=== PATIENT | female | born 1940 | race Caucasian/White ===

== ENCOUNTER 2018-04-07 22:15 | Emergency (ER) | payer MEDICARE, BC ==
--- NOTE | 2018-04-07 23:00 | EDM.PDOC ---
ED HPI GENERAL MEDICAL PROBLEM - General Chief Complaint: Cardiovascular Problem Stated Complaint: RAPID HEART BEAT Time Seen by Provider: 04/07/18 22:23 Source of Information: Reports: Patient, Family (Daughter), RN Notes Reviewed History Limitations: Reports: No Limitations - History of Present Illness INITIAL COMMENTS - FREE TEXT/NARRATIVE: The patient states that she has been feeling rapid palpitations on and off for 30 years, but that they usually only last for a few minutes. Tonight she developed the sensation around 19:00, and they have persisted. She is unsure if she may have been feeling them earlier today. She denies associated chest pain, dyspnea, nausea, or diaphoresis. She does feel anxious. She has had an occasional dry cough. No recent fever, abdominal pain, vomiting, constipation, diarrhea, or urinary symptoms. The patient initially stated that she has had prior cardiac evaluations that included ECGs, an echocardiogram, and stress tests, all negative. She has never undergone a coronary angiogram. The patient then noted, however, that she is on digoxin and Eliquis, for, it turns out, chronic atrial fibrillation. The patient is sometimes able to sense that she is in atrial fibrillation, other times not. At the time, for example, atrial fibrillation was present on the electronic device monitor, however, the patient did not feel any palpitations. She is also on furosemide and hydrochlorothiazide, likely for congestive heart failure , although, as above, she has not had any recent dyspnea. The patient's PCP is Dr. Keys. She does not have a Broadcast Designer. - Related Data Allergies Allergy/AdvReac Type Severity Reaction Status Date / Time No Known Allergies Allergy Verified 01/27/17 10:15 Home Meds: Home Meds Apixaban [Eliquis] 5 mg PO DAILY 04/07/18 [History] Digoxin 125 mcg PO DAILY 04/07/18 [History] Folic Acid 1 tab PO DAILY 04/07/18 [History] Furosemide 20 mg PO DAILY 04/07/18 [History] Losartan [Cozaar] 50 mg PO DAILY 04/07/18 [History] Methotrexate Sodium [Methotrexate] 15 mg PO DAILY 04/07/18 [History] Nebivolol HCl [Bystolic] 10 mg PO DAILY 04/07/18 [History] hydroCHLOROthiazide [Hydrochlorothiazide] 50 mg PO 04/07/18 [History] Past Medical History HEENT History: Reports: Impaired Vision Cardiovascular History: Reports: Afib (chronic), Heart Failure, Hypertension Genitourinary History: Reports: Urinary Incontinence (stress incontinence) Musculoskeletal History: Reports: RA - Infectious Disease History Infectious Disease History: Reports: Chicken Pox, Measles, Shingles - Past Surgical History HEENT Surgical History: Reports: LASIK, Oral Surgery (wisdom teeth extracted) Musculoskeletal Surgical History: Reports: Knee Replacement, ORIF (right wrist) Social & Family History - Family History Family Medical History: Noncontributory - Tobacco Use Smoking Status *Q: Never Smoker - Alcohol Use Alcohol Use History: Yes Alcohol Use Frequency: Socially - Recreational Drug Use Recreational Drug Use: No - Living Situation & Occupation Living situation: Reports: , Alone Occupation: Retired ED ROS GENERAL - Review of Systems Review Of Systems: ROS reveals no pertinent complaints other than HPI. ED EXAM, GENERAL - Physical Exam Exam: See Below Exam Limited By: No Limitations General Appearance: Alert, WD/WN, No Apparent Distress Eye Exam: Bilateral Eye: EOMI, Normal Inspection Ears: Normal External Exam, Hearing Loss Nose: Normal Inspection Throat/Mouth: Normal Inspection, Normal Lips, Normal Voice, No Airway Compromise Head: Atraumatic, Normocephalic Neck: Normal Inspection, Full Range of Motion Respiratory/Chest: No Respiratory Distress, Lungs Clear, Normal Breath Sounds, No Accessory Muscle Use Cardiovascular: Normal Peripheral Pulses, No Edema, No Gallop, No JVD, No Murmur , No Rub, Irregularly Irregular (regular rate) Peripheral Pulses: 4+: Radial (L), Radial (R) GI/Abdominal: Normal Bowel Sounds, Soft, Non-Tender, No Organomegaly, No Distention, No Abnormal Bruit, No Mass (Female) Exam: Deferred Rectal (Female) Exam: Deferred Back Exam: Normal Inspection, Full Range of Motion, NT Extremities: Normal Inspection, Normal Range of Motion, No Pedal Edema, Normal Capillary Refill Neurological: Alert, Oriented, Normal Cognition, No Motor/Sensory Deficits Psychiatric: Normal Affect Skin Exam: Warm, Dry, Intact, Normal Color, No Rash EKG INTERPRETATION EKG Date: 04/07/18 Time: 10:26 Rhythm: A-Fib Rate (Beats/Min): 71 Cardwell: LAD-Left Cardwell Deviation (likely 2 LAFB) P-Wave: Absent QRS: Other (+LVH. Late transition) ST-T: Normal QT: Normal Comparison: NA - No Prior EKG Course - Vital Signs Last Recorded V/S: Last Vital Signs Temp 36.2 C 04/07/18 22:20 Pulse 72 04/07/18 22:20 Resp 16 04/07/18 22:20 BP 149/95 H 04/07/18 22:20 Pulse Ox 98 04/07/18 22:20 - Re-Assessments/Exams Free Text/Narrative Re-Assessment/Exam: 04/07/18 22:54 The patient's ECG demonstrates atrial fibrillation, rate controlled at 71 bpm. She is already on Eliquis. As per the history of present illness, the patient has a 30 year history of palpitations - sometimes she is aware of her atrial fibrillation, sometimes not, even though it appears that she is chronically in atrial fibrillation. From an atrial fibrillation standpoint, no further evaluation or treatment is required. The patient does not have any other symptoms, such as chest pain or dyspnea, therefore I don't see any need to order other tests, either. The patient was concerned about her blood pressure at home, but it is quite reasonable at 149/95 here in the ED. I believe we can safely discharge the patient home, and have her follow-up with her PCP, Dr. Sarah Lu. Both the patient and her daughter are delighted with that decision. Departure - Departure Time of Disposition: 22:56 Disposition: Home, Self-Care 01 Condition: Good Clinical Impression: Chronic atrial fibrillation, Palpitations, Elevated blood pressure reading Instructions: Palpitations, [id number] Referrals: Simon Crump MD [Primary Care Provider] - Forms: ED Department Discharge Additional Instructions: You were seen in the emergency room for rapid palpitations and elevated blood pressure tonight. In the ER, an ECG showed that you are in atrial fibrillation, but your heart rate is controlled. As discussed, with atrial fibrillation, the two concerns are your heart rate, and anticoagulation. In your case, both of these are adequately taken care of, therefore no further workup was indicated. We recommend that you continue to take your medications as prescribed. Follow-up with your PCP, Dr. Keys, as needed. If any other problems, please do not hesitate to return to the ER.
== END 2018-04-07 23:06 | disposition home or self-care (01) ==
LOC: JD.ED 22:15
DX: I48.2 Chronic atrial fibrillation (principal); I11.9 Hypertensive heart disease without heart failure; I50.9 Heart failure, unspecified; Z79.01 Long term (current) use of anticoagulants; Z79.899 Other long term (current) drug therapy
CPT/HCPCS: 93005; 99284

== ENCOUNTER 2019-06-06 07:51 | Day surgery (SDC) | payer MEDICARE, BC ==
--- NOTE | 2019-06-06 08:16 | PCM.PREANE ---
Preanesthetic Assessment - Anesthesia/Transfusion/Family Hx Anesthesia History: Prior Anesthesia Without Reaction Family History of Anesthesia Reaction: No Transfusion History: No Prior Transfusion(s) Intubation History: Unknown - Review of Systems General: No Symptoms Pulmonary: No Symptoms Cardiovascular: No Symptoms (History of A-fib: on eliquis, history of HTN) Gastrointestinal: No Symptoms Neurological: No Symptoms Other: Reports: None - Physical Assessment NPO Status Date: 06/05/19 NPO Status Time: 17:30 Vital Signs: HR: 59 BP: 136/77 Resp: 16 Sat: 97% Temp: 97.5 Height: 1.65 m Weight: 71.668 kg ASA Class: 2 Mental Status: Alert & Oriented x3 Airway Class: Mallampati = 2 Dentition: Reports: Normal Dentition, Caries Thyro-Mental Finger Breadths: 3 Mouth Opening Finger Breadths: 3 ROM/Head Extension: Full Lungs: Clear to Auscultation, Normal Respiratory Effort Cardiovascular: Regular Rate, Regular Rhythm, No Murmurs - Allergies Allergies/Adverse Reactions: Allergies Allergy/AdvReac Type Severity Reaction Status Date / Time No Known Allergies Allergy Verified 06/05/19 11:07 - Anesthesia Plan Pre-Op Medication Ordered: Beta Nicole Beta Nicole: Other (Bystolic) Med Last Dose Date: 06/06/19 Med Last Dose Time: 06:00 - Acknowledgements Anesthesia Type Planned: MAC Pt an Appropriate Candidate for the Planned Anesthesia: Yes Alternatives and Risks of Anesthesia Discussed w Pt/Guardian: Yes Pt/Guardian Understands and Agrees with Anesthesia Plan: Yes PreAnesthesia Questionnaire HEENT History: Reports: Impaired Vision Cardiovascular History: Reports: Afib (chronic), Heart Failure, Hypertension Genitourinary History: Reports: Urinary Incontinence (stress incontinence) Musculoskeletal History: Reports: RA - Infectious Disease History Infectious Disease History: Reports: Chicken Pox, Measles, Shingles - Past Surgical History HEENT Surgical History: Reports: LASIK, Oral Surgery (wisdom teeth extracted) Musculoskeletal Surgical History: Reports: Knee Replacement, ORIF (right wrist) - HOME MEDS Home Medications: Home Meds Apixaban [Eliquis] 5 mg PO BID 04/07/18 [History] Digoxin 125 mcg PO DAILY 04/07/18 [History] Folic Acid 1 mg PO DAILY 04/07/18 [History] Furosemide 20 mg PO DAILY 01/17/19 [History] Losartan [Cozaar] 75 mg PO DAILY 04/07/18 [History] Methotrexate Sodium [Methotrexate] 17.5 mg PO TH 04/07/18 [History] Nebivolol HCl [Bystolic] 10 mg PO DAILY 04/07/18 [History] Hydroxychloroquine [Plaquenil] 200 mg PO BID 06/05/19 [History] hydrOXYzine HCL [Hydroxyzine HCl] 25 mg PO DAILY 06/05/19 [History] - CURRENT (IN HOUSE) MEDS Current Meds: Current Medications Brimonidine Tartrate (Alphagan 0.2% Ophth Soln) 0 ml EYELF ASDIRECTED MELO Stop: 06/06/19 23:00 Cefuroxime Sodium (Zinacef) 0 mg EYELF ASDIRECTED MELO Stop: 06/06/19 18:00 Lidocaine HCl (Xylocaine-Mpf 1%) 1 ml INJECT ASDIRECTED MELO Stop: 06/06/19 18:00 Phenylephrine HCl (Luca-Synephrine 2.5% Ophth Soln) 0 ml EYELF ASDIRECTED MELO Stop: 06/06/19 23:00 Pilocarpine HCl (Pilocar 4% Ophth Soln) 0 ml EYELF ASDIRECTED MELO Stop: 06/06/19 23:00 Polymyxin/Trimethoprim Sulfate (Polytrim Ophth Soln) 0 ml EYELF ASDIRECTED MELO Stop: 06/06/19 23:00 Tetracaine HCl (Tetracaine 0.5% Steri-Unit Yodit) 0 ml EYEBOTH ASDIRECTED MELO Stop: 06/06/19 23:00 Tropicamide (Mydriacyl 1% Ophth Soln) 0 ml EYELF ASDIRECTED MELO Stop: 06/06/19 23:00
[2019-06-06] MEDS: Polymyxin B/Trimethoprim 10 ML Bottle EYELF SCH ×4 (08:31→10:35)
[2019-06-06] MEDS: Brimonidine 0.2% Ophth Soln 5 ML Bottle EYELF SCH ×4 (08:35→10:35)
[2019-06-06] MEDS: Phenylephrine 2.5% Ophth Soln 2 ML Bot EYELF SCH ×6 (08:40→10:15)
[2019-06-06] MEDS: Tropicamide 1% Ophth Soln 15 ML Bottle EYELF SCH ×4 (08:45→09:37)
[2019-06-06] MEDS: Lidocaine 1% PF 2 ML SDV INJECT SCH ×2 (08:57→10:23)
[2019-06-06] MEDS: Tetracaine HCl/PF 0.5% 4 ML Bottle EYEBOTH SCH ×3 (08:57→10:22)
[2019-06-06] MEDS: Pilocarpine 4% Ophth Soln 15 ML Bot EYELF SCH ×2 (08:58→10:35)
[2019-06-06] MEDS: Cefuroxime 10 MG/ML SYRINGE EYELF SCH ×2 (08:58→10:34)
--- NOTE | 2019-06-06 10:37 | PCM48HPAN ---
Post Anesthesia Note - EVALUATION WITHIN 48HRS OF ANESTHETIC Vital Signs in Normal Range: Yes Patient Participated in Evaluation: Yes Respiratory Function Stable: Yes Airway Patent: Yes Cardiovascular Function Stable: Yes Hydration Status Stable: Yes Pain Control Satisfactory: Yes Nausea and Vomiting Control Satisfactory: Yes Mental Status Recovered: Yes Vital Signs: Last Vital Signs Temp 36.4 C 06/06/19 07:50 Pulse 59 L 06/06/19 07:50 Resp 16 06/06/19 07:50 BP 136/77 06/06/19 07:50 Pulse Ox 97 06/06/19 07:50
== END 2019-06-06 10:50 | disposition home or self-care (01) ==
LOC: JD.SDS 07:51
PROVIDERS: ATTEND Ophthalmology
DX: H25.813 Combined forms of age-related cataract, bilateral (principal); I10 Essential (primary) hypertension; Z98.890 Other specified postprocedural states
CPT/HCPCS: 66984; J0697; J2001; V2632

== ENCOUNTER 2019-08-08 08:15 | Day surgery (SDC) | payer MEDICARE, BC ==
[~2019-08-08 08:15] MED LIST: Cefuroxime 10 MG/ML SYRINGE EYERT SCH; Lidocaine 1% PF 2 ML SDV INJECT SCH; Pilocarpine 4% Ophth Soln 15 ML Bot EYERT SCH
[2019-08-08] MEDS: Polymyxin B/Trimethoprim 10 ML Bottle EYERT SCH ×3 (08:19→10:37)
[2019-08-08] MEDS: Brimonidine 0.2% Ophth Soln 5 ML Bottle EYERT SCH ×3 (08:23→10:37)
[2019-08-08] MEDS: Phenylephrine 2.5% Ophth Soln 2 ML Bot EYERT SCH ×5 (08:26→10:07)
[2019-08-08] MEDS: Tropicamide 1% Ophth Soln 15 ML Bottle EYERT SCH ×4 (08:29→09:00)
[2019-08-08] MEDS: Tetracaine HCl/PF 0.5% 4 ML Bottle EYEBOTH SCH ×4 (09:05→10:35)
--- NOTE | 2019-08-08 09:21 | PCM.PREANE ---
Preanesthetic Assessment - Procedure Proposed Procedure: cataract extraction with IOL implant - Anesthesia/Transfusion/Family Hx Anesthesia History: Prior Anesthesia Without Reaction Transfusion History: No Prior Transfusion(s) Intubation History: Unknown - Review of Systems General: No Symptoms Pulmonary: No Symptoms Cardiovascular: Other (A-fib) Gastrointestinal: No Symptoms Neurological: No Symptoms Other: Reports: None - Physical Assessment NPO Status Date: 08/07/19 NPO Status Time: 20:00 Vital Signs: Last Vital Signs Temp 36.8 C 08/08/19 08:05 Pulse 62 08/08/19 08:05 Resp 16 08/08/19 08:05 BP 141/69 H 08/08/19 08:05 Pulse Ox 97 08/08/19 08:05 Height: 1.65 m Weight: 69.4 kg ASA Class: 2 Mental Status: Alert & Oriented x3 Airway Class: Mallampati = 1 Dentition: Reports: Normal Dentition Thyro-Mental Finger Breadths: 3 Mouth Opening Finger Breadths: 3 ROM/Head Extension: Full Lungs: Clear to Auscultation, Normal Respiratory Effort Cardiovascular: Regular Rate, Regular Rhythm - Allergies Allergies/Adverse Reactions: Allergies Allergy/AdvReac Type Severity Reaction Status Date / Time No Known Allergies Allergy Verified 08/07/19 15:09 - Blood Blood Available: No Product(s) Available: None - Anesthesia Plan Pre-Op Medication Ordered: Beta Nicole Beta Nicole: Other (Bystolic) Med Last Dose Date: 08/08/19 Med Last Dose Time: 06:30 - Acknowledgements Anesthesia Type Planned: MAC Pt an Appropriate Candidate for the Planned Anesthesia: Yes Alternatives and Risks of Anesthesia Discussed w Pt/Guardian: Yes Pt/Guardian Understands and Agrees with Anesthesia Plan: Yes PreAnesthesia Questionnaire HEENT History: Reports: Impaired Vision Cardiovascular History: Reports: Afib (chronic), Heart Failure, Hypertension Genitourinary History: Reports: Urinary Incontinence (stress incontinence) Musculoskeletal History: Reports: RA - Infectious Disease History Infectious Disease History: Reports: Chicken Pox, Measles, Shingles - Past Surgical History HEENT Surgical History: Reports: LASIK, Oral Surgery (wisdom teeth extracted) Musculoskeletal Surgical History: Reports: Knee Replacement, ORIF (right wrist) - SUBSTANCE USE Smoking Status *Q: Never Smoker Tobacco Use Within Last Twelve Months: No Second Hand Smoke Exposure: No Days Per Week of Alcohol Use: 1 Number of Drinks Per Day: 0 Total Drinks Per Week: 0 Recreational Drug Use History: No - HOME MEDS Home Medications: Home Meds Apixaban [Eliquis] 5 mg PO BID 04/07/18 [History] Digoxin 125 mcg PO DAILY 04/07/18 [History] Folic Acid 1 mg PO DAILY 04/07/18 [History] Furosemide 20 mg PO Q48H 04/07/18 [History] Losartan [Cozaar] 75 mg PO DAILY 04/07/18 [History] Nebivolol HCl [Bystolic] 10 mg PO DAILY 04/07/18 [History] metHOTREXate sodium [Methotrexate] 15 mg PO TH 04/07/18 [History] Hydroxychloroquine [Plaquenil] 200 mg PO BID 06/05/19 [History] - CURRENT (IN HOUSE) MEDS Current Meds: Current Medications Brimonidine Tartrate (Alphagan 0.2% Ophth Soln) 0 ml EYERT ASDIRECTED MELO Stop: 08/08/19 18:00 Last Admin: 08/08/19 08:52 Dose: 1 drop Cefuroxime Sodium (Zinacef) 0 mg EYERT ASDIRECTED MELO Stop: 08/08/19 18:00 Lidocaine HCl (Xylocaine-Mpf 1%) 0 ml INJECT ASDIRECTED MELO Stop: 08/08/19 18:00 Phenylephrine HCl (Luca-Synephrine 2.5% Ophth Soln) 0 ml EYERT ASDIRECTED MELO Stop: 08/08/19 18:00 Last Admin: 08/08/19 08:56 Dose: 1 drop Pilocarpine HCl (Pilocar 4% Ophth Soln) 0 ml EYERT ASDIRECTED MELO Stop: 08/08/19 18:00 Polymyxin/Trimethoprim Sulfate (Polytrim Ophth Soln) 0 ml EYERT ASDIRECTED MELO Stop: 08/08/19 18:00 Last Admin: 08/08/19 08:48 Dose: 1 drop Tetracaine HCl (Tetracaine 0.5% Steri-Unit Yodit) 0 ml EYEBOTH ASDIRECTED MELO Stop: 08/08/19 18:00 Last Admin: 08/08/19 09:10 Dose: 1 drop Tropicamide (Mydriacyl 1% Ophth Soln) 0 ml EYERT ASDIRECTED MELO Stop: 08/08/19 18:00 Last Admin: 08/08/19 09:00 Dose: 1 drop
--- NOTE | 2019-08-08 10:17 | PCM48HPAN ---
Post Anesthesia Note - EVALUATION WITHIN 48HRS OF ANESTHETIC Vital Signs in Normal Range: Yes Patient Participated in Evaluation: Yes Respiratory Function Stable: Yes Airway Patent: Yes Cardiovascular Function Stable: Yes Hydration Status Stable: Yes Pain Control Satisfactory: Yes Nausea and Vomiting Control Satisfactory: Yes Mental Status Recovered: Yes Vital Signs: Last Vital Signs Temp 36.8 C 08/08/19 08:05 Pulse 62 08/08/19 08:05 Resp 16 08/08/19 08:05 BP 141/69 H 08/08/19 08:05 Pulse Ox 97 08/08/19 08:05
== END 2019-08-08 10:46 ==
LOC: JD.SDS 08:15
PROVIDERS: ATTEND Ophthalmology
DX: H25.811 Combined forms of age-related cataract, right eye (principal); H35.363 Drusen (degenerative) of macula, bilateral; H35.3131 Nonexudative age-related macular degeneration, bilateral, early dry stage; H17.813 Minor opacity of cornea, bilateral; H16.103 Unspecified superficial keratitis, bilateral; H16.223 Keratoconjunctivitis sicca, not specified as Sjogren's, bilateral; I11.0 Hypertensive heart disease with heart failure; I50.9 Heart failure, unspecified; I48.20 Chronic atrial fibrillation, unspecified; Z79.01 Long term (current) use of anticoagulants; Z96.1 Presence of intraocular lens
CPT/HCPCS: 66984; J0697; J2001; C1780

== ENCOUNTER 2020-07-04 19:16 | Emergency (ER) | payer MEDICARE, BC ==
[2020-07-04] MEDS ORDERED: Sodium Chloride 0.9% 10 ML Syringe FLUSH PRN (19:42)
--- NOTE | 2020-07-04 19:52 | EDM.PDOC ---
ED HPI GENERAL MEDICAL PROBLEM - General Chief Complaint: Cardiovascular Problem Stated Complaint: LEFT ARM PAIN FEET SWELLING Time Seen by Provider: 07/04/20 19:41 Source of Information: Reports: Patient, RN Notes Reviewed History Limitations: Reports: No Limitations - History of Present Illness INITIAL COMMENTS - FREE TEXT/NARRATIVE: Patient is an 79-year-old female presents to the ER for her left arm pain, and feet swelling. Patient notes that her left arm pain started yesterday, but seems to have worsened today. She is also appreciated some swelling into her legs, notes that her weight is 3 to 5 pounds more here than it was at home. Patient is not having any chest pain, she has been having a lingering cough since , with accompanying lethargy. Patient's not had any recent medicine changes. She does take Lasix, on a weekly basis. She has a history of atrial fibrillation and is on a blood thinner for this. Also has a history of rheumatoid arthritis. Patient's care provider is Dr. Keys. She denies any fevers or chills, any productive cough, she states that she gets winded pretty easily, she has not had any nausea or vomiting or diarrhea. She has about 1+ edema on her bilateral lower extremities. Left Arm Pain Score (Numeric/FACES): 5 - Related Data Allergies Allergy/AdvReac Type Severity Reaction Status Date / Time No Known Allergies Allergy Verified 08/07/19 15:09 Home Meds: Home Meds Apixaban [Eliquis] 5 mg PO BID 04/07/18 [History] Digoxin 125 mcg PO DAILY 04/07/18 [History] Folic Acid 1 mg PO DAILY 04/07/18 [History] Furosemide 20 mg PO Q48H 04/07/18 [History] Losartan [Cozaar] 75 mg PO DAILY 04/07/18 [History] Nebivolol HCl [Bystolic] 10 mg PO DAILY 04/07/18 [History] metHOTREXate sodium [Methotrexate] 15 mg PO TH 04/07/18 [History] Hydroxychloroquine [Plaquenil] 200 mg PO BID 06/05/19 [History] Past Medical History HEENT History: Reports: Impaired Vision Cardiovascular History: Reports: Afib (chronic), Heart Failure, Hypertension Genitourinary History: Reports: Urinary Incontinence (stress incontinence) Musculoskeletal History: Reports: RA - Infectious Disease History Infectious Disease History: Reports: Chicken Pox, Measles, Shingles - Past Surgical History HEENT Surgical History: Reports: LASIK, Oral Surgery (wisdom teeth extracted) Musculoskeletal Surgical History: Reports: Knee Replacement, ORIF (right wrist) Social & Family History - Family History Family Medical History: No Pertinent Family History - Living Situation & Occupation Living situation: Reports: , Alone Occupation: Retired ED ROS GENERAL - Review of Systems Review Of Systems: Comprehensive ROS is negative, except as noted in HPI. ED EXAM, GENERAL - Physical Exam Exam: See Below Exam Limited By: No Limitations General Appearance: Alert, WD/WN, No Apparent Distress Eye Exam: Bilateral Eye: EOMI, Normal Inspection Respiratory/Chest: No Respiratory Distress, Lungs Clear, Normal Breath Sounds, No Accessory Muscle Use, Chest Non-Tender Cardiovascular: Normal Peripheral Pulses, Regular Rate, Rhythm Peripheral Pulses: 2+: Radial (L), Radial (R), Dorsalis Pedis (L), Dorsalis Pedis (R) GI/Abdominal: Normal Bowel Sounds, Soft, Non-Tender, No Distention, No Mass Extremities: Normal Inspection, Normal Capillary Refill, Pedal Edema (1+ bilateral pitting edema) Neurological: Alert, Oriented, Normal Cognition, No Motor/Sensory Deficits Psychiatric: Normal Affect, Normal Mood Skin Exam: Warm, Dry, Intact, Normal Color, No Rash #1 Interpretation EKG Date: 07/04/20 Time: 19:49 Rhythm: A-Fib Rate (Beats/Min): 55 [place]: LAD-Left [place] Deviation (-54 ) P-Wave: Present QRS: RBBB (incomplete) QT: Normal Comparison: No Change EKG Interpretation Comments: No obvious ischemia or acute ST changes noted, reviewed by myself and Dr. Ashraf. Dr. Ashraf appreciated Q waves in V1 and V2, consider old anteroseptal DC. He also appreciate some T wave flattening in multiple leads, and metabolic imbalance like electrolyte imbalance should be considered. Course - Vital Signs Last Recorded V/S: Last Vital Signs Temp 97.1 F 07/04/20 19:52 Pulse 52 L 07/04/20 19:52 Resp 20 07/04/20 19:52 BP 141/71 H 07/04/20 19:52 Pulse Ox 98 07/04/20 19:52 - Orders/Labs/Meds Orders: Active Orders 24 hr Category Date Time Status EKG Documentation Completion [RC] STAT Care 07/04/20 19:42 Active Peripheral IV Care [RC] . DIRECTED Care 07/04/20 19:42 Active Sodium Chloride 0.9% [Saline Flush] Med 07/04/20 19:42 Active 10 ml FLUSH ASDIRECTED PRN Peripheral IV Insertion Adult [OM.PC] Stat Oth 07/04/20 19:42 Ordered Medication Orders Sodium Chloride (Sodium Chloride 0.9% 10 Ml Syringe) 10 ml FLUSH ASDIRECTED PRN PRN Reason: Keep Vein Open Labs: Laboratory Tests 07/04/20 07/04/20 07/04/20 Range/Units 20:10 20:10 20:10 WBC 7.66 (3.98-10.04) K/mm3 RBC 3.86 L (3.98-5.22) M/mm3 Hgb 12.5 (11.2-15.7) gm/dl Hct 39.3 (34.1-44.9) % MCV 101.8 H (79.4-94.8) fl MCH 32.4 H (25.6-32.2) pg MCHC 31.8 L (32.2-35.5) g/dl RDW Std Deviation 50.0 H (36.4-46.3) fL Plt Count 258 (182-369) K/mm3 MPV 9.3 L (9.4-12.3) fl Neut % (Auto) 71.3 H (34.0-71.1) % Lymph % (Auto) 14.5 L (19.3-51.7) % [place] % (Auto) 10.1 (4.7-12.5) % Eos % (Auto) 3.1 (0.7-5.8) Baso % (Auto) 0.7 (0.1-1.2) % Neut # (Auto) 5.47 (1.56-6.13) K/mm3 Lymph # (Auto) 1.11 L (1.18-3.74) K/mm3 [place] # (Auto) 0.77 H (0.24-0.36) K/mm3 Eos # (Auto) 0.24 (0.04-0.36) K/mm3 Baso # (Auto) 0.05 (0.01-0.08) K/mm3 PT 12.3 H (9.7-12.0) SECONDS INR 1.15 APTT 28.8 (21.7-31.4) SECONDS Sodium 143 (136-145) mEq/L Potassium 3.8 (3.5-5.1) mEq/L Chloride 103 (98-107) mEq/L Carbon Dioxide 29 (21-32) mEq/L Anion Gap 14.8 (5-15) BUN 19 H (7-18) mg/dL Creatinine 0.9 (0.55-1.02) mg/dL Est Cr Clr Drug Dosing 46.67 mL/min Estimated GFR (MDRD) > 60 (>60) mL/min BUN/Creatinine Ratio 21.1 H (14-18) Glucose 94 (83-115) mg/dL Calcium 9.0 (8.5-10.1) mg/dL Magnesium 2.0 (1.8-2.4) mg/dl Total Bilirubin 0.8 (0.2-1.0) mg/dL AST 23 (15-37) U/L ALT 30 (14-59) U/L Alkaline Phosphatase 63 (46-116) U/L Troponin I 0.028 (0.00-0.056) ng/mL NT-Pro-B Natriuret Pep (0-450) pg/mL Total Protein 7.0 (6.4-8.2) g/dl Albumin 3.6 (3.4-5.0) g/dl Globulin 3.4 gm/dL Albumin/Globulin Ratio 1.1 (1-2) 07/04/20 Range/Units 20:10 WBC (3.98-10.04) K/mm3 RBC (3.98-5.22) M/mm3 Hgb (11.2-15.7) gm/dl Hct (34.1-44.9) % MCV (79.4-94.8) fl MCH (25.6-32.2) pg MCHC (32.2-35.5) g/dl RDW Std Deviation (36.4-46.3) fL Plt Count (182-369) K/mm3 MPV (9.4-12.3) fl Neut % (Auto) (34.0-71.1) % Lymph % (Auto) (19.3-51.7) % [place] % (Auto) (4.7-12.5) % Eos % (Auto) (0.7-5.8) Baso % (Auto) (0.1-1.2) % Neut # (Auto) (1.56-6.13) K/mm3 Lymph # (Auto) (1.18-3.74) K/mm3 [place] # (Auto) (0.24-0.36) K/mm3 Eos # (Auto) (0.04-0.36) K/mm3 Baso # (Auto) (0.01-0.08) K/mm3 PT (9.7-12.0) SECONDS INR APTT (21.7-31.4) SECONDS Sodium (136-145) mEq/L Potassium (3.5-5.1) mEq/L Chloride (98-107) mEq/L Carbon Dioxide (21-32) mEq/L Anion Gap (5-15) BUN (7-18) mg/dL Creatinine (0.55-1.02) mg/dL Est Cr Clr Drug Dosing mL/min Estimated GFR (MDRD) (>60) mL/min BUN/Creatinine Ratio (14-18) Glucose (83-115) mg/dL Calcium (8.5-10.1) mg/dL Magnesium (1.8-2.4) mg/dl Total Bilirubin (0.2-1.0) mg/dL AST (15-37) U/L ALT (14-59) U/L Alkaline Phosphatase (46-116) U/L Troponin I (0.00-0.056) ng/mL NT-Pro-B Natriuret Pep 2576 H (0-450) pg/mL Total Protein (6.4-8.2) g/dl Albumin (3.4-5.0) g/dl Globulin gm/dL Albumin/Globulin Ratio (1-2) Meds: Medications Generic Name Dose Route Start Last Admin Trade Name Freq PRN Reason Stop Dose Admin Sodium Chloride 10 ml 07/04/20 19:42 Sodium Chloride 0.9% 10 Ml Syringe FLUSH ASDIRECTED PRN Keep Vein Open - Re-Assessments/Exams Free Text/Narrative Re-Assessment/Exam: 07/04/20 19:51 Patient presents to the ER for her left arm pain, and bilateral leg swelling. We will go ahead, get a EKG, chest x-ray, baseline labs for evaluation. 07/04/20 21:07 Laboratory evaluation has completed. The patient's CBC is unremarkable for any sort of bacterial infection, coagulation studies are within normal limits. Metabolic panel is essentially unremarkable, her troponin is 0.028, within normal limits, the patient's BNP is 2576. The patient's chest x-ray has also returned with findings that are felt compatible with mild CHF. I do believe that that blip in the troponin would be due to the heart failure she is experiencing, she is not complaining of any chest pain whatsoever. I did go over laboratory findings with Dr. Morris, and he did agree at this time. I will try to recommend the patient increase her Lasix dosing, from every 48 hours, to at least every 24 hours, and she should take 40 in the morning tomorrow for ongoing management. We will have her follow-up with Ludmila on Wednesday for ongoing management and keep a record of her weights over the weekend, to make sure that she is losing water weight as expected. Departure - Departure Time of Disposition: 21:23 Disposition: Home, Self-Care 01 Condition: Good Clinical Impression: CHF exacerbation Qualifiers: Heart failure type: unspecified Qualified Code(s): I50.9 - Heart failure, unspecified Instructions: Heart Failure, Self Care, [id number], Heart Failure Eating Plan Referrals: Simon Crump MD [Primary Care Provider] - Forms: ED Department Discharge Additional Instructions: You were evaluated in the ER today for your increased leg edema, and your left arm pain. Left arm pain is most likely due to musculoskeletal disease in nature. You may continue all previous medications as previously prescribed your primary care provider for pain. EKG, and chest x-ray and labs done at today's visit demonstrate that you are experiencing an exacerbation or worsening of your heart failure. Remedy for this is to increase your oral Lasix intake. You indicated that you take 20 mg Lasix (furosemide) daily, I would like you to take 40 mg or 2 tablets daily for the next 2 days, and then you may decrease to 20 mg daily. Please monitor your weights at home while taking more of this Lasix (furosemide) so you can be sure that the water is actually coming off, this will likely make you use the bathroom or urinate more. If you should become dizzy or lightheaded, have any palpitations sort of sensations in your chest, or develop any sort of chest pain, worsening shortness of breath, or the edema on your legs is not getting better as expected, please return to the ER for further management over the weekend. Recommend you try to go home, and elevate your legs as much as possible over the weekend, if you are laying on the couch, please raise your legs above your heart level to help relieve some of the edema in your legs. Recommend you call Dr. Keys's office, for follow-up on Wednesday please call his office tomorrow at [phone] and request an appointment for Wednesday, so you can get on his or his midlevel, Gavin Olson's schedule for reevaluation. Please return to the ER at any time if your symptoms should change or worsen. Sepsis Event Note (ED) - Focused Exam Vital Signs: Vital Signs Temp Pulse Resp BP Pulse Ox 07/04/20 19:52 97.1 F 52 L 20 141/71 H 98 - My Orders Last 24 Hours: My Active Orders 07/04/20 19:42 EKG Documentation Completion [RC] STAT Peripheral IV Care [RC] . DIRECTED Sodium Chloride 0.9% [Saline Flush] 10 ml FLUSH ASDIRECTED PRN Peripheral IV Insertion Adult [OM.PC] Stat - Assessment/Plan Last 24 Hours: My Active Orders 07/04/20 19:42 EKG Documentation Completion [RC] STAT Peripheral IV Care [RC] . DIRECTED Sodium Chloride 0.9% [Saline Flush] 10 ml FLUSH ASDIRECTED PRN Peripheral IV Insertion Adult [OM.PC] Stat
--- NOTE | 2020-07-04 20:28 | CR ---
Chest: Portable view of the chest was obtained. Comparison: Prior chest x-ray of 06/07/10. Heart is enlarged. Tortuous thoracic aorta is seen. Pulmonary vessels are mildly increased. Lungs otherwise are clear. Bony structures are grossly intact. Impression: 1. Findings which are felt compatible with mild CHF. Diagnostic code #3
== END 2020-07-04 21:49 | disposition home or self-care (01) ==
LOC: JD.ED 19:16
DX: I11.0 Hypertensive heart disease with heart failure (principal); I50.9 Heart failure, unspecified; I48.20 Chronic atrial fibrillation, unspecified; M06.9 Rheumatoid arthritis, unspecified; I45.10 Unspecified right bundle-branch block; Z79.01 Long term (current) use of anticoagulants; Z79.899 Other long term (current) drug therapy
CPT/HCPCS: 36415; 71045; 71045-26; 80053; 83735; 83880; 84484; 85025; 85610; 85730; 93005; 93010; 99284; 99284-25

== ENCOUNTER → 2023-12-29 | Day surgery (SDC) | payer MEDICARE, BC | LOC: JD.INTMED 10:05 → JD.DI 10:48 | PROVIDERS: ATTEND Pediatrics | DX: R05.9 Cough, unspecified (principal) | CPT/HCPCS: 71046; 71046-26 ==

== ENCOUNTER 2025-02-09 17:45 | Inpatient (IN) | payer MEDICARE, BC ==
[2025-02-09] MEDS ORDERED: Sodium Chloride 0.9% 10 ML Syringe FLUSH PRN ×2 (17:58→19:32)
[2025-02-09 18:30] LABS: BASOPHILS ABSOLUTE AUTO 0.1 K/mm3 (0.0-0.2); BASOPHILS PERCENT AUTO 0.7 % (0.0-1.0); EOSINOPHILS ABSOLUTE AUTO 0.2 K/mm3 (0.0-0.4); EOSINOPHILS PERCENT AUTO 2.4 % (0.0-6.0); IMMATURE GRAN ABSOLUTE AUTO 0.06 K/mm3 (0.00-0.05); IMMATURE GRAN PERCENT AUTO 0.8 % (0.0-0.4); LYMPHOCYTES ABSOLUTE AUTO 0.9 K/mm3 (1.0-4.8); LYMPHOCYTES PERCENT AUTO 13.1 % (24.0-44.0); MEAN PLATELET VOLUME 8.8 fl (9.4-12.3); MONOCYTES ABSOLUTE AUTO 0.5 K/mm3 (0.0-0.8); MONOCYTES PERCENT AUTO 7.2 % (0.0-8.0); NEUTROPHILS ABSOLUTE AUTO 5.4 K/mm3 (1.8-7.7); NEUTROPHILS PERCENT AUTO 75.8 % (41.0-71.0); NRBC ABSOLUTE 0.00 (0.00-0.02); NRBC PERCENT 0.0 % (0.0-0.2); PLATELET COUNT,PLT 278 K/mm3 (150-400); RED BLOOD CELL COUNT 3.55 M/mm3 (4.10-5.30); WHITE BLOOD CELL COUNT,WBC 7.18 K/mm3 (3.9-11.3)
[2025-02-09 18:46] LABS: INR 1.11
[2025-02-09 19:04] LABS: A/G RATIO 0.9 (1-2); ALANINE AMINOTRANSFERASE,ALT 27 U/L (14-59); ASPARTATE AMNIOTRANSFERASE,AST 25 U/L (15-37); BILIRUBIN TOTAL 0.5 mg/dL (0.2-1.0); BLOOD UREA NITROGEN,BUN 26 mg/dL (7-18); CARBON DIOXIDE,CO2 26 mEq/L (21-32); CHLORIDE,CL 105 mEq/L (98-107); CREATININE 0.7 mg/dL (0.55-1.02); D-DIMER QUANTITATIVE 23.22 mg/L (0.19-0.50); ESTIMATED GFR 85 mL/min (>60); GLUCOSE RANDOM 113 mg/dL (70-99); POTASSIUM,K 3.0 mEq/L (3.5-5.1); PROTEIN TOTAL,TP 6.0 g/dl (6.4-8.2); SODIUM,NA 143 mEq/L (136-145)
[2025-02-09 19:08] LABS: TROPONIN I HIGH SENSITIVITY 68 pg/mL (<=51)
[2025-02-09] MEDS ORDERED: Ondansetron 4 MG Tab.DIS PO PRN (19:44)
[2025-02-09] MEDS: Iopamidol 755 Mg/ML 100 ML Bottle IVPUSH ONE (19:59)
[2025-02-09] MEDS: Heparin Sodium 5,000 Units/ML Vial SUBCUT SCH (20:33)
[2025-02-09] MEDS: Potassium Chloride 20 MEQ Tab.ER PO ONE (20:35)
[2025-02-09] MEDS: Acetaminophen/oxyCODONE 325-5 MG Tab PO PRN (22:16)
[2025-02-10] MEDS: Ondansetron 4 MG/2 ML SDV IV PRN (10:22)
[2025-02-10] MEDS: diphenhydrAMINE 50 MG/ML SDV IVPUSH ONE (16:20)
[2025-02-12 08:42] LABS: BASOPHILS ABSOLUTE AUTO 0.1 K/mm3 (0.0-0.2); BASOPHILS PERCENT AUTO 0.6 % (0.0-1.0); EOSINOPHILS ABSOLUTE AUTO 0.2 K/mm3 (0.0-0.4); EOSINOPHILS PERCENT AUTO 2.3 % (0.0-6.0); IMMATURE GRAN ABSOLUTE AUTO 0.02 K/mm3 (0.00-0.05); IMMATURE GRAN PERCENT AUTO 0.2 % (0.0-0.4); LYMPHOCYTES ABSOLUTE AUTO 0.9 K/mm3 (1.0-4.8); LYMPHOCYTES PERCENT AUTO 10.2 % (24.0-44.0); MEAN PLATELET VOLUME 9.1 fl (9.4-12.3); MONOCYTES ABSOLUTE AUTO 0.8 K/mm3 (0.0-0.8); MONOCYTES PERCENT AUTO 8.5 % (0.0-8.0); NEUTROPHILS ABSOLUTE AUTO 7.1 K/mm3 (1.8-7.7); NEUTROPHILS PERCENT AUTO 78.2 % (41.0-71.0); NRBC ABSOLUTE 0.00 (0.00-0.02); NRBC PERCENT 0.0 % (0.0-0.2); PLATELET COUNT,PLT 207 K/mm3 (150-400); RED BLOOD CELL COUNT 2.97 M/mm3 (4.10-5.30); WHITE BLOOD CELL COUNT,WBC 9.02 K/mm3 (3.9-11.3)
[2025-02-12] MEDS ORDERED: DONEPEZIL HCL 5 MG PO SCH (09:00)
[2025-02-12 09:02] LABS: INR 1.08
[2025-02-12 09:05] LABS: A/G RATIO 0.7 (1-2); ALANINE AMINOTRANSFERASE,ALT 17.0 U/L (14-59); ASPARTATE AMNIOTRANSFERASE,AST 17.0 U/L (15-37); BILIRUBIN TOTAL 0.7 mg/dL (0.2-1.0); BLOOD UREA NITROGEN,BUN 23.0 mg/dL (7-18); CARBON DIOXIDE,CO2 29.0 mEq/L (21-32); CHLORIDE,CL 107.0 mEq/L (98-107); CREATININE 0.7 mg/dL (0.55-1.02); EST CRCL DRUG DOSING (CG) 51.54 mL/min; ESTIMATED GFR 85.0 mL/min (>60); GLUCOSE RANDOM 110.0 mg/dL (70-99); POTASSIUM,K 4.0 mEq/L (3.5-5.1); PROTEIN TOTAL,TP 5.4 g/dl (6.4-8.2); SODIUM,NA 142.0 mEq/L (136-145)
[2025-02-12] MEDS ORDERED: Propofol 200 MG/20 ML SDV ONE (10:36)
[2025-02-12] MEDS ORDERED: fentaNYL 100 MCG/2 ML SDV ONE (10:36)
[2025-02-12] MEDS ORDERED: propofoL 500 MG/50 ML 50 ML ONE (10:36)
[2025-02-12] MEDS ORDERED: Ketamine HCL/NACL, ISO-OSM 50 MG/5 ML Syringe ONE (10:36)
[2025-02-12] MEDS ORDERED: Ondansetron 4 MG/2 ML SDV ONE (10:43)
[2025-02-12] MEDS ORDERED: Phenylephrine 1% 10 MG/ML SDV ONE (11:06)
[2025-02-12] MEDS ORDERED: Dexamethasone 4 MG/ML 5 ML MDV ONE (12:00)
[2025-02-12] MEDS ORDERED: Lactated Ringers 1,000 ML IV ONE (12:40)
[2025-02-12] MEDS: Morphine 8 MG, EPINEPHrine 0.3 MG, Cefuroxime 750 MG, Ketorolac 30 MG, Sodium Chloride ... PRN (12:40)
[2025-02-12] MEDS ORDERED: fentaNYL 100 MCG/2 ML SDV IVPUSH PRN (12:50)
[2025-02-12] MEDS ORDERED: Ondansetron 4 MG/2 ML SDV IVPUSH PRN (12:50)
[2025-02-13 08:25] LABS: BASOPHILS ABSOLUTE AUTO 0.0 K/mm3 (0.0-0.2); BASOPHILS PERCENT AUTO 0.4 % (0.0-1.0); EOSINOPHILS ABSOLUTE AUTO 0.4 K/mm3 (0.0-0.4); EOSINOPHILS PERCENT AUTO 3.2 % (0.0-6.0); IMMATURE GRAN ABSOLUTE AUTO 0.06 K/mm3 (0.00-0.05); IMMATURE GRAN PERCENT AUTO 0.6 % (0.0-0.4); LYMPHOCYTES ABSOLUTE AUTO 0.9 K/mm3 (1.0-4.8); LYMPHOCYTES PERCENT AUTO 8.7 % (24.0-44.0); MEAN PLATELET VOLUME 9.7 fl (9.4-12.3); MONOCYTES ABSOLUTE AUTO 0.7 K/mm3 (0.0-0.8); MONOCYTES PERCENT AUTO 6.6 % (0.0-8.0); NEUTROPHILS ABSOLUTE AUTO 8.7 K/mm3 (1.8-7.7); NEUTROPHILS PERCENT AUTO 80.5 % (41.0-71.0); NRBC ABSOLUTE 0.00 (0.00-0.02); NRBC PERCENT 0.0 % (0.0-0.2); PLATELET COUNT,PLT 240 K/mm3 (150-400); RED BLOOD CELL COUNT 3.21 M/mm3 (4.10-5.30); WHITE BLOOD CELL COUNT,WBC 10.79 K/mm3 (3.9-11.3)
[2025-02-13 09:08] LABS: A/G RATIO 0.6 (1-2); ALANINE AMINOTRANSFERASE,ALT 20.0 U/L (14-59); ASPARTATE AMNIOTRANSFERASE,AST 28.0 U/L (15-37); BILIRUBIN TOTAL 0.6 mg/dL (0.2-1.0); BLOOD UREA NITROGEN,BUN 35.0 mg/dL (7-18); CARBON DIOXIDE,CO2 27.0 mEq/L (21-32); CREATININE 0.9 mg/dL (0.55-1.02); EST CRCL DRUG DOSING (CG) 39.86 mL/min; ESTIMATED GFR 63.0 mL/min (>60); GLUCOSE RANDOM 138.0 mg/dL (70-99); POTASSIUM,K 4.3 mEq/L (3.5-5.1); PROTEIN TOTAL,TP 6.1 g/dl (6.4-8.2)
[2025-02-13 09:15] LABS: CHLORIDE,CL 100.0 mEq/L (98-107); SODIUM,NA 137.0 mEq/L (136-145)
[2025-02-14 05:54] LABS: BASOPHILS ABSOLUTE AUTO 0.0 K/mm3 (0.0-0.2); BASOPHILS PERCENT AUTO 0.3 % (0.0-1.0); EOSINOPHILS ABSOLUTE AUTO 0.4 K/mm3 (0.0-0.4); EOSINOPHILS PERCENT AUTO 4.1 % (0.0-6.0); IMMATURE GRAN ABSOLUTE AUTO 0.05 K/mm3 (0.00-0.05); IMMATURE GRAN PERCENT AUTO 0.6 % (0.0-0.4); LYMPHOCYTES ABSOLUTE AUTO 0.7 K/mm3 (1.0-4.8); LYMPHOCYTES PERCENT AUTO 7.3 % (24.0-44.0); MEAN PLATELET VOLUME 9.5 fl (9.4-12.3); MONOCYTES ABSOLUTE AUTO 0.9 K/mm3 (0.0-0.8); MONOCYTES PERCENT AUTO 10.0 % (0.0-8.0); NEUTROPHILS ABSOLUTE AUTO 7.0 K/mm3 (1.8-7.7); NEUTROPHILS PERCENT AUTO 77.7 % (41.0-71.0); NRBC ABSOLUTE 0.00 (0.00-0.02); NRBC PERCENT 0.0 % (0.0-0.2); PLATELET COUNT,PLT 216 K/mm3 (150-400); RED BLOOD CELL COUNT 2.67 M/mm3 (4.10-5.30); WHITE BLOOD CELL COUNT,WBC 8.98 K/mm3 (3.9-11.3)
[2025-02-14 06:13] LABS: BLOOD UREA NITROGEN,BUN 38.0 mg/dL (7-18); CARBON DIOXIDE,CO2 30.0 mEq/L (21-32); CHLORIDE,CL 98.0 mEq/L (98-107); CREATININE 0.9 mg/dL (0.55-1.02); EST CRCL DRUG DOSING (CG) 39.86 mL/min; ESTIMATED GFR 63.0 mL/min (>60); GLUCOSE RANDOM 117.0 mg/dL (70-99); POTASSIUM,K 4.1 mEq/L (3.5-5.1); SODIUM,NA 136.0 mEq/L (136-145)
== END 2025-02-14 12:41 | DRG 956 ==
LOC: JD.ED 17:45 → JD.MS 19:44
PROVIDERS: ADMIT Hospitalist; ATTEND Internal Medicine
PROC: 0SRS0JZ Replacement of Left Hip Joint, Femoral Surface with Synthetic Substitute, Open Approach (ICD-10-PCS; principal; 2025-02-09)
DX: S72.002A Fracture of unspecified part of neck of left femur, initial encounter for closed fracture (principal); S32.591A Other specified fracture of right pubis, initial encounter for closed fracture; I48.11 Longstanding persistent atrial fibrillation; M97.32XA Periprosthetic fracture around internal prosthetic left shoulder joint, initial encounter; N13.30 Unspecified hydronephrosis; E87.6 Hypokalemia; Z66 Do not resuscitate; I11.0 Hypertensive heart disease with heart failure; M06.9 Rheumatoid arthritis, unspecified; H54.7 Unspecified visual loss; D64.89 Other specified anemias; I50.9 Heart failure, unspecified; R79.89 Other specified abnormal findings of blood chemistry; I71.21 Aneurysm of the ascending aorta, without rupture; Z96.642 Presence of left artificial hip joint; Z96.659 Presence of unspecified artificial knee joint; E86.0 Dehydration; Z98.890 Other specified postprocedural states; Z79.01 Long term (current) use of anticoagulants; Z79.899 Other long term (current) drug therapy; W19.XXXA Unspecified fall, initial encounter
CPT/HCPCS: 01210; 36415; 51798; 70450; 70450-26; 71045; 71045-26; 71275; 71275-26; 72125; 72125-26; 73030-26-LT; 73030-LT; 73501-26-LT; 73501-LT; 73502-26-LT; 73502-LT; 80048; 80053; 80307; 82550; 83735; 83880; 84484; 85025; 85379; 85610; 86850; 86900; 86901; 87641; 93005; 93010; 93306; 94760; 94761; 97110-GO; 97110-GP; 97112-GP; 97116-GP; 97162-GP; 97165-GO; 97530-GP; 97535-GO; 99100; 99222; 99232; 99233; 99239; 99285; A9270-GY; C1776; J0169; J0690; J0697; J1100; J1200; J1644; J1885; J2270; J2272; J2371; J2405; J2704; J3010; J3373; J3480; J3490; J7030; J7120; Q9967; U0002